=== PATIENT | male | born 1980 | race Caucasian/White ===

== ENCOUNTER → 2018-02-11 | Outpatient (CLI) | payer MEDICAID | LOC: CIMAGING 10:21 | PROVIDERS: ATTEND Family Medicine | DX: R07.81 Pleurodynia (principal); E11.65 Type 2 diabetes mellitus with hyperglycemia | CPT/HCPCS: 71101-PO ==

== ENCOUNTER → 2019-05-02 | Outpatient (CLI) | payer MEDICAID | LOC: FIMAGING 19:47 ==